=== PATIENT | male | born 1930 | race Caucasian/White ===

== ENCOUNTER 2019-04-05 20:26 | Emergency (ER) | payer OTHER ==
[~2019-04-05] VITALS: Ht 167.6 cm; Wt 72.3 kg
[~2019-04-05 20:26] MED LIST: AMLO-147 PO; LEVO25TA6 PO; LOSA25TA12 PO; OMEP40CA6 PO; SIMV20TA2 PO; TAMS-14 PO
[2019-04-05 20:30] VITALS: Ht 167.6 cm; Wt 72.3 kg
[2019-04-05] MEDS ORDERED: SENN-120 PO (22:22)
[2019-04-05] MEDS ORDERED: DOCU-144 PO (22:22)
[2019-04-05 22:57] VITALS: BP 150/69; PULSE 83; RESP 18
--- NOTE | 2019-04-05 23:37 | ERD ---
ER Documentation Chief Complaint Chief Complaint ARIN from [facility],abd distention,denies pain,hx L AKA HPI Patient is a 88-year-old male with hypertension and COPD who presents for abdominal distention. Please note the history and physical exam is limited secondary to the patient's mental status. The patient was brought in by ambulance. The patient was sent for abdominal distention. He denies pain. He has had a previous left leg amputation. Upon review of old medical records this is the patient's first visit to the emergency department. He does have a primary doctor. ROS All systems reviewed and are negative except as per history of present illness. Medications Home Meds Active Scripts Sennosides* (Senna Lax*) 8.6 Mg Tablet, 1 TAB PO DAILY, #30 TAB Prov:JERAMIE HAMPTON MD 04/05/19 Docusate Sodium* (Colace*) 100 Mg Capsule, 100 MG PO TID, #30 CAP Prov:JERAMIE HAMPTON MD 04/05/19 Reported Medications Omeprazole* (Omeprazole*) 40 Mg Capsule.dr, 40 MG PO DAILY, CAP 02/24/15 Tamsulosin Hcl* (Flomax*) 0.4 Mg Cap.er.24h, 0.4 MG PO BID, CAP 02/24/15 Levothyroxine Sodium* (Levothyroxine Sodium*) 25 Mcg Tablet, 25 MCG PO AC BREAKFAST, TAB 02/24/15 Simvastatin (Simvastatin) 20 Mg Tablet, 20 MG PO HS, TAB 02/24/15 Losartan Potassium* (Losartan Potassium*) 25 Mg Tablet, 25 MG PO DAILY, TAB 02/24/15 Amlodipine Besylate* (Amlodipine Besylate*) 10 Mg Tablet, 10 MG PO DAILY, TAB 02/24/15 Allergies Allergies: Coded Allergies: No Known Allergy (Unverified , 02/24/15) PMhx/Soc History of Surgery: Yes (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) Anesthesia Reaction: No Hx Neurological Disorder: No Hx Respiratory Disorders: Yes (COPD) Hx Cardiac Disorders: Yes (HTN, HIGH CHOLESTEROL) Hx Psychiatric Problems: No Hx Miscellaneous Medical Probl: No Hx Alcohol Use: No Hx Substance Use: No Hx Tobacco Use: No Smoking Status: Never smoker FmHx Family History: No diabetes Physical Exam Vitals Vital Signs Date Temp Pulse Resp B/P (MAP) Pulse Ox O2 O2 Flow FiO2 Time Delivery Rate 04/05/19 83 18 150/69 100 Room Air 22:57 (96) 04/05/19 98.3 100 18 175/74 98 20:30 (107) Physical Exam Const: No acute distress Head: Atraumatic Eyes: Normal Conjunctiva ENT: Normal External Ears, Nose and Mouth. Neck: Full range of motion. No meningismus. Resp: Clear to auscultation bilaterally Cardio: Regular rate and rhythm, no murmurs Abd: Soft, abdominal distention without tenderness to palpation Skin: No petechiae or rashes Back: No midline or flank tenderness Ext: No cyanosis, or edema Neur: Awake and alert Psych: Normal Mood and Affect Result Diagram: 04/05/19210904/05/192109 Results 24 hrs Laboratory Tests Test 04/05/19 21:10 White Blood Count 8.0 10^3/ul Red Blood Count 4.32 10^6/ul Hemoglobin 13.3 g/dl Hematocrit 39.9 % Mean Corpuscular Volume 92.4 fl Mean Corpuscular Hemoglobin 30.8 pg Mean Corpuscular Hemoglobin Concent 33.3 g/dl Red Cell Distribution Width 12.3 % Platelet Count 206 10^3/UL Mean Platelet Volume 10.0 fl Immature Granulocytes % 1.800 % Neutrophils % 51.6 % Lymphocytes % 30.7 % Monocytes % 11.1 % Eosinophils % 2.9 % Basophils % 1.9 % Nucleated Red Blood Cells % 0.0 /100WBC Immature Granulocytes # 0.140 10^3/ul Neutrophils # 4.1 10^3/ul Lymphocytes # 2.4 10^3/ul Monocytes # 0.9 10^3/ul Eosinophils # 0.2 10^3/ul Basophils # 0.2 10^3/ul Nucleated Red Blood Cells # 0.0 10^3/ul Sodium Level 134 mmol/L Potassium Level 3.9 mmol/L Chloride Level 100 mmol/L Carbon Dioxide Level 24 mmol/L Anion Gap 10 Blood Urea Nitrogen 10 mg/dl Creatinine 0.67 mg/dl Est Glomerular Filtrat Rate mL/min mL/min Glucose Level 209 mg/dl Calcium Level 9.6 mg/dl Total Bilirubin 0.4 mg/dl Direct Bilirubin 0.00 mg/dl Indirect Bilirubin 0.4 mg/dl Aspartate Amino Transf (AST/SGOT) 49 IU/L Alanine Aminotransferase (ALT/SGPT) 74 IU/L Alkaline Phosphatase 196 IU/L Total Protein 7.7 g/dl Albumin 4.1 g/dl Globulin 3.60 g/dl Albumin/Globulin Ratio 1.13 Lipase 209 U/L Procedures/MDM CT abdomen pelvis read by radiology shows constipation. Patient is an 88-year-old male with COPD and hypertension who presents with abdominal distention. Patient was found to have constipation without signs of bowel obstruction. I doubt appendicitis or other serious bacterial infection. The patient will be discharged back to the nursing facility. The patient can return for any worsening symptoms. I will give the patient a prescription for Colace and senna. Departure Diagnosis: Primary Impression: Constipation Constipation type: unspecified constipation type Qualified Codes: K59.00 - Constipation, unspecified Additional Impressions: Swelling Abdominal distension Condition: Fair Patient Instructions: Treating Constipation, Constipation (Adult) Additional Instructions: Llame al doctor MAANA y ana rudy SISSY PARA DENTRO DE 1-2 BETTS.Dgale a la secretaria que nosotros le instruimos hacer esta sissy.Avise o llame si tamayo condicin se empeora antes de la sissy. Regresa aqui si peor o no mejor. JERAMIE HAMPTON MD April 05, 2019 23:37
== END 2019-04-05 23:15 | disposition home or self-care (01) ==
LOC: E/R 20:26
DX: K59.00 Constipation, unspecified (principal); I10 Essential (primary) hypertension; J44.9 Chronic obstructive pulmonary disease, unspecified; R60.9 Edema, unspecified
CPT/HCPCS: 36415; 74176; 80053; 83690; 85025